=== PATIENT | female | born 1970 | race Caucasian/White ===

== ENCOUNTER → 2021-12-04 | Outpatient (CLI) | payer BC, SELFPAY ==
[2021-12-04 12:43] LABS: Microalbumin,Random Urine < 5.0 mg/L (NO RANGE EST.)
== END | disposition home or self-care (01) ==
LOC: BIMLAB 08:47
PROVIDERS: Referring Provider Internal Medicine Endocrinology, Diabetes & Metabolism; Visit Provider Internal Medicine Endocrinology, Diabetes & Metabolism
DX: E78.2 Mixed hyperlipidemia (principal); E10.65 Type 1 diabetes mellitus with hyperglycemia; E03.8 Other specified hypothyroidism; E06.3 Autoimmune thyroiditis
CPT/HCPCS: 82043; 82570